=== PATIENT | male | born 1965 | race Caucasian/White ===

== ENCOUNTER 2016-08-01 12:02 | Inpatient (IN) | payer BC, SELFPAY ==
[2016-08-01 12:37] LABS: ABG Draw Site Right Radial; ABG Draw Tech SI; ALLEN'S TEST PASS; BEb -0.8 (+/- 2); TCO2 26.3 MMOL/L (23-27)
--- NOTE | 2016-08-01 12:38 | EDPRACDOC ---
- General Information Chief Complaint: Dyspnea/Resp distress Stated Complaint: RESP Time Seen by Provider: 08/01/16 12:19 Information Source: Patient, Block Breaker Mode Of Arrival: Ambulance Home Medications: Home Medications Fluticasone/Salmeterol [Advair 500-50 Diskus] 1 puff INH BID 08/07/13 Sertraline HCl [Zoloft] 100 mg PO DAILY 11/23/15 Albuterol Sulfate [Proair Hfa] 2 puff INH Q4-6H PRN 02/11/16 Gabapentin 300 mg PO BID 02/11/16 Meloxicam [Mobic] 15 mg PO DAILY 03/14/16 Albuterol Sulfate [Ventolin] 2.5 mg NEB Q6H 04/25/16 Alprazolam [Xanax] 0.5 mg PO TID 04/25/16 Eszopiclone [Lunesta] 3 mg PO QHS PRN 05/25/16 Umeclidinium [place] [Incruse Ellipta] 62.5 mcg INH DAILY 05/25/16 Aspirin (Enteric Coated) [Halfprin] 81 mg PO HS 06/28/16 Oxycodone HCl [Oxycodone Immediate Release] 10 mg PO TID #30 tablet 06/30/16 Allergies/Adverse Reactions: Allergies Allergy/AdvReac Type Severity Reaction Status Date / Time No Known Allergies Allergy Verified 06/28/16 17:59 - History of Present Illness HPI: SOB FOR 3-4 DAYS. H/O COPD, PNA. LAST ADMITTED A FEW MONTHS AGO FOR PNA. NO FEVER. + PRODUCTIVE COUGH. INTERMITTENTLY IMPROVED WITH NEBS. 3 NEBS AT HOME. 3 NEBS EN ROUTE INCLUDING DUONEB. CHEST PAIN WITH COUGHING. + SMOKE.R - Treatment Prior to ED Arrival Reported Medications/Treatment HAT AND CAP SEWER Meds/Treatments Given O2 via Cannula,Neb Treatment(Albuterol) Medications HAT AND CAP SEWER (Medication/ DuoNeb x 3 Dose/Time) EMS Treatment BLS IV Yes ED Past Medical History - Patient Medical History Neurological History: Reports: Cerebrovascular Accident Cardiac History: Reports: Coronary Artery Disease. 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 Denies: Depression, Substance Use Disorder (in remission x 1 year) Surgical History: Reports: Other (Multiple sinus surgeries, portacath for dialysis access) - Family Medical History Reports: Diabetes (mother), Cancer (grandfather.), Stroke (grandmother). Denies : Hypertension, Cardiac Disorders - Social Medical History Smoking Status: Heavy tobacco smoker (5 or more cigarettes/day or daily pipe/ cigar) Social History: Denies: Cocaine Use, Heroin Use, Methadone Use, Substance Use Disorder (in remission x 1 year) EDM Review of Systems - Review of Systems ROS Negative Except as Marked: Yes All systems reviewed and were negative except as marked Constitutional: No Symptoms Reported Eyes: No Symptoms Reported Respiratory: Cough, Shortness of Breath Cardiovascular: Chest Pain Gastrointestinal: No Symptoms Reported Genitourinary: No Symptoms Reported Neurological: Headache Musculoskeletal: No Symptoms Reported - Physical Exam Constitutional: Alert (Awake) Oriented to: Time, Person, Place Last recorded Vital Signs: Last Vital Signs Temp 98.7 F 08/01/16 12:10 Pulse 109 08/01/16 12:30 Resp 26 H 08/01/16 12:30 BP 127/67 08/01/16 12:30 Pulse Ox 91 08/01/16 12:30 Oxygen Pulse Oxygen Saturation 91 O2 Device Nasal Cannula Oxygen Flow Rate 2 Fraction of Inspired Oxygen ( FIO2) - HEENT Head: Normal ( normocephalic) Eye Exam: Normal (PERRL, EOMI, Sclera white) Oropharynx: Normal (Pharynx:Moist without exudate,Gums-no swelling) Nose: No Symptoms Reported (septum midline) Neck: Normal (FROM, trachea at midline) - Respiratory/Cardiovascular Respiratory: Wheezes Cardiovascular: Tachycardia - GI Auscultation: Normal (NABS) Palpation: Normal (Soft,No rebound or guarding, non distended) Tenderness: Non tender Allen's Sign: Negative - Musculoskeletal Back: Normal (Non-Tender) Extremities: Normal (Normal tone, Pulses 2+ No cyanosis or edema, FROM) - Integumentary Skin: Normal, Warm, Dry Lymphatics: Normal (no adenopathy) - Neurologic Memory Impaired: Normal Motor Function: Normal (Normal tone, Pulses 2+ No cyanosis or edema, FROM) Cranial Nerve: Normal (CN II-X11 intact sensation, strength 5/5) Cerebellar: Normal Mood Description: Normal Perception: Normal ED SOB MDM - Re-evaluation Re-evaluation 1 Re-evaluation Time: 13:34 Re-evaluation: RESTING COMFORTABLY - Results Result Diagrams: 08/01/16 12:55 08/01/16 12:55 - EKG EKG #1 EKG Time: 12:10 -: Yes EKG interpreted by me Rate: bpm: 117 [place]: Normal Rhythm: ST, PVCs Block: None Hypertrophy: None ST: Normal Comments: NORMAL EKG - Departure Yes I personally saw and evaluated the patient. Disposition: Admit IP To This Hospital Condition: Stable Final Diagnosis: Acute exacerbation of chronic obstructive airways disease Decision to Admit Time: 13:34 Decision to admit date: 08/01/16 Decision to admit: from ED - Physician Consulted Hospitalist Time Called: 13:34 Provider Called: Carlin Meyer Time Inside Sales Manager Returned Call: 13:34
[2016-08-01] MEDS ORDERED: ACETAMINOPHEN 325 MG/TAB TABLET PO ONE (12:39)
[2016-08-01 13:04] LABS: AUTOMATED BASOPHIL 0.4 % (0-2); AUTOMATED EOSINOPHIL 6.8 % (0-5); AUTOMATED LYMPH 8.7 % (17-44); AUTOMATED MONOCYTE 8.7 % (3-10); AUTOMATED NEUTROPHIL 75.4 % (45-76); MPV 8.1 fL (7.4-10.4)
[2016-08-01 13:15] LABS: PARTIAL THROMB. TIME 32.8 SEC (22-35); PT-INR 1.1
[2016-08-01 13:17] LABS: BLOOD UREA NITROGEN 10 MG/DL (9-20); CALCIUM 8.5 MG/DL (8.4-10.2); CALCULATED OSMOLALITY 270 MOs/Kg (270-290); CHLORIDE 108 mEq/L (98-107); GLUCOSE 98 MG/DL (70-99); SODIUM LEVEL 141 mEq/L (137-146); TOTAL PROTEIN 6.8 G/DL (6.3-8.2)
[2016-08-01] MEDS ORDERED: CEFTRIAXONE 1 GM in D5W 100 ML IV ONE (13:35)
[2016-08-01] MEDS ORDERED: ONDANSETRON HCL 4 MG/2 ML VIAL IV PRN (13:35)
[2016-08-01] MEDS ORDERED: AZITHROMYCIN 500 MG in D5W 250 ML IV ONE (13:35)
[2016-08-01] MEDS ORDERED: ACETAMINOPHEN 325 MG/TAB TABLET PO PRN (13:35)
--- NOTE | 2016-08-01 13:51 | DIRPT ---
CLINICAL DATA: Shortness of breath. Cough. EXAM: PORTABLE CHEST 1 VIEW COMPARISON: Chest radiograph 06/29/2016. FINDINGS: Stable cardiac and mediastinal contours. Heterogeneous opacities right lung base. No pleural effusion or pneumothorax. Regional skeleton is unremarkable. IMPRESSION: Heterogeneous opacities right lung base may represent infection and/or atelectasis. Electronically Signed By: Luiz Porras M.D. On: 08/01/2016 13:48
[2016-08-01] MEDS: METHYLPREDNISOLONE 125 MG/2 ML VIAL IV SCH ×2 (13:53→20:26)
[2016-08-01] MEDS ORDERED: ESZOPICLONE 3 MG PO PRN (14:39)
[2016-08-01 15:02] VITALS: BMI 26.8
--- NOTE | 2016-08-01 15:17 | HISTPHYS ---
- Chief Complaint COPD exacerbation, shortness of breath and cough - History of Present Illness This is a 50-year-old male with a history of severe COPD who is being admitted to the hospital with 3 days of cough shortness of breath. Cough is productive of some thick sputum, but it is not discolored. Has been having some associated lower chest/upper abdominal pain due to significant coughing. No therapies prior to arrival. No fevers, chills, nausea, vomiting or diarrhea. 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 Denies: Depression - Surgical History Reports: Other (Multiple sinus surgeries, portacath for dialysis access) - Medictions/Allergies Allergies No Known Allergies Allergy (Verified 06/28/16 17:59) Home Medications Fluticasone/Salmeterol [Advair 500-50 Diskus] 1 puff INH BID 08/07/13 Sertraline HCl [Zoloft] 100 mg PO DAILY 11/23/15 Albuterol Sulfate [Proair Hfa] 2 puff INH Q4-6H PRN 02/11/16 Gabapentin 300 mg PO BID 02/11/16 Meloxicam [Mobic] 15 mg PO DAILY 03/14/16 Albuterol Sulfate [Ventolin] 2.5 mg NEB Q6H 04/25/16 Alprazolam [Xanax] 0.5 mg PO TID 04/25/16 Eszopiclone [Lunesta] 3 mg PO QHS PRN 05/25/16 Umeclidinium [place] [Incruse Ellipta] 62.5 mcg INH DAILY 05/25/16 Aspirin (Enteric Coated) [Halfprin] 81 mg PO HS 06/28/16 Oxycodone HCl [Oxycodone Immediate Release] 10 mg PO TID #30 tablet 06/30/16 - Family History Reports: Diabetes (mother), Cancer (grandfather.), Stroke (grandmother). Denies : Hypertension, Cardiac Disorders - Social History Travel Outside of [place] in the Last 3 Months?: No Smoking Status: Heavy tobacco smoker (5 or more cigarettes/day or daily pipe/ cigar) - Review of Systems Constitutional: No Symptoms Reported (No fever, chills, wt loss/gain, fatigue) Eyes: No Symptoms Reported (No blurry vision, visual changes) Respiratory: No Symptoms Reported (No cough,wheezing or shortness of breath) Cardiovascular: No Symptoms Reported (No Chest pain, palpitations) Gastrointestinal: No Symptoms Reported (No abdominal pain, nausea, vomiting, diarrhea or constipation) Genitourinary: No Symptoms Reported (No dysuria) Musculoskeletal:: No Symptoms Reported (No headache, dizzness, seizures or focal weakness) Integumentary: No Symptoms Reported (No rashes or lesions) Hematologic: No Symptoms Reported (No bleeding or easy bruising) Endocrine: No Symptoms Reported (No polyuria) - Physical Exam Vital Signs: Initial Vitals Temperature 98.7 F 08/01/16 12:10 Pulse Rate 118 08/01/16 12:10 Respiratory Rate 26 H 08/01/16 12:10 Blood Pressure 160/69 08/01/16 12:10 Pulse Oxygen Saturation 86 L 08/01/16 12:10 Constitutional: Distress Oriented to: Time, Person, Place - HEENT Head: Normal (normocephalic,atraumatic, trachea midline) Eye: Normal (EOMI, Sclera white) Oropharynx: Normal (moist) Nose: No Symptoms Reported (without discharge or bleeding) Respiratory: Accessory Muscle Use, Diminished, Rales, Rhonchi, Wheezes Cardiovascular: Normal (RRR, no murmurs, rubs or gallops) - GI Palpation: Normal (soft, non distended and nontender) - Musculoskeletal Extremities: Normal (normal tone, no cyanosis or edema) - Integumentary Skin: Normal (no rashes or lesions) - Focused CV Perfusion Exam Vital Signs: Last Vital Signs Temp 97.7 F 08/01/16 14:53 Pulse 89 08/01/16 14:53 Resp 22 08/01/16 14:53 BP 107/67 08/01/16 14:53 Pulse Ox 91 08/01/16 14:53 - Lab Results Laboratory Tests 08/01/16 08/01/16 08/01/16 12:24 12:55 12:55 WBC 9.0 Hgb 12.4 L INR pH 7.360 pCO2 44.0 pO2 60.0 L Potassium 3.6 BUN 10 Creatinine 0.90 08/01/16 12:55 WBC Hgb INR 1.1 pH pCO2 pO2 Potassium BUN Creatinine - Diagnostic Findings Chest x-ray: Heterogeneous opacities right lung base may represent infection and/or atelectasis. - Assessment (1) Acute exacerbation of chronic obstructive airways disease J44.1 - CHRONIC OBSTRUCTIVE PULMONARY DISEASE W (ACUTE) EXACERBATION Acute Patient was just admitted to the hospital about 1 month ago with community- acquired pneumonia, as well as COPD exacerbation. Unfortunately his back in the hospital with the same diagnosis. Will admit to the hospital to the PCU. Treat COPD exacerbation with scheduled duo nebs, p.r.n. albuterol as well as good aggressive pulmonary toilet with respiratory therapy. IV steroid dose and taper. Also empiric IV azithromycin and Rocephin. (2) Bilateral pneumonia J18.9 - PNEUMONIA, UNSPECIFIED ORGANISM Acute Sputum culture has been obtained and will be followed up on. Sputum culture on previous admission grew strep that was resistant to macrolides. As such, will treat with Unasyn and Levaquin. (3) HTN (hypertension) I10 - ESSENTIAL (PRIMARY) HYPERTENSION Acute Qualifiers: Patient's history of hypertension, not taking medication at home for this. Will continue to follow blood pressure here, and start medication if appropriate. (4) CAD (coronary artery disease) I25.10 - ATHSCL HEART DISEASE OF [place] CORONARY ARTERY W/O ANG PCTRS Chronic Qualifiers: Continue home medications and monitor. (5) Depression F32.9 - MAJOR DEPRESSIVE DISORDER, SINGLE EPISODE, UNSPECIFIED Chronic Qualifiers: Continue zoloft Case Care Discussed with: Patient, Nursing Staff Total Time: 41
[2016-08-01] MEDS: Albuterol/Ipratropium Neb 3 ML NEB NEB SCH ×2 (15:26→20:15)
[2016-08-01] MEDS ORDERED: ALPRAZOLAM 0.5 MG TAB PO ONE (15:45)
[2016-08-01] MEDS ORDERED: OXYCODONE HCL 5 MG TABLET PO ONE (15:45)
[2016-08-01] MEDS ORDERED: Vaccine Screening Complete SCH (16:00)
[2016-08-01] MEDS: AMPICILLIN-SULBACTAM 3 GM in NS 100 ML IV SCH ×2 (16:36→22:33)
[2016-08-01] MEDS: Levofloxacin 750 mg/150 ml D5W 750 MG/150 ML RTU IV SCH (17:25)
[2016-08-01] MEDS: ENOXAPARIN 40 MG/0.4 ML PFS SQ SCH (17:26)
[2016-08-01] MEDS: IPRATROPIUM 0.02% 2.5 ML NEB NEB SCH (20:16)
[2016-08-01] MEDS: ALPRAZOLAM 0.5 MG TAB PO SCH (20:26)
[2016-08-01] MEDS: OXYCODONE HCL 5 MG TABLET PO SCH (20:26)
[2016-08-01] MEDS: GABAPENTIN 300 MG CAP PO SCH (20:27)
[2016-08-01] MEDS ORDERED: Non-Formulary Medication ITEM (Oxycodone Hcl [Oxycodone Immediate Release] 10 MG) PO SCH (21:00)
[2016-08-01] MEDS: ZOLPIDEM TARTRATE 5 MG TAB PO PRN (22:33)
[2016-08-02] MEDS: Albuterol/Ipratropium Neb 3 ML NEB NEB SCH ×4 (01:16→20:45)
[2016-08-02] MEDS: IPRATROPIUM 0.02% 2.5 ML NEB NEB SCH ×2 (01:19→09:05)
[2016-08-02] MEDS: METHYLPREDNISOLONE 125 MG/2 ML VIAL IV SCH ×4 (02:50→19:46)
[2016-08-02] MEDS: AMPICILLIN-SULBACTAM 3 GM in NS 100 ML IV SCH ×4 (03:18→22:51)
[2016-08-02 04:44] LABS: MPV 8.5 fL (7.4-10.4)
[2016-08-02 04:56] LABS: BLOOD UREA NITROGEN 15 MG/DL (9-20); CALCIUM 8.9 MG/DL (8.4-10.2); CALCULATED OSMOLALITY 275 MOs/Kg (270-290); CHLORIDE 105 mEq/L (98-107); GLUCOSE 188 MG/DL (70-99); SODIUM LEVEL 140 mEq/L (137-146)
[2016-08-02] MEDS: ALPRAZOLAM 0.5 MG TAB PO SCH ×3 (06:01→21:03)
[2016-08-02] MEDS: OXYCODONE HCL 5 MG TABLET PO SCH ×3 (06:01→21:03)
[2016-08-02] MEDS: GABAPENTIN 300 MG CAP PO SCH ×2 (08:29→21:02)
[2016-08-02] MEDS: SERTRALINE HCL 100 MG TAB PO SCH (08:29)
--- NOTE | 2016-08-02 08:50 | GENMEDPROG ---
Chief Complaint: COPD exacerbation Subjective Note: Resting comfortably in bed this morning. He has ambulated to the bathroom, and feeling very winded and short of breath when he does that. Still feels like he is wheezing. Has been coughing overnight, but not productive of anything. Notes Reviewed: Yes Events from last night noted and discussed with Clinical Staff Current Medication List: Reviewed Currently: Reports: Cough, Wheezing, BALL, SOB. Denies: Sputum DVT Prophylaxis: Yes - Physical Examination Vital Signs and I&O: Last Vital Signs Temp 97.7 F 08/02/16 07:49 Pulse 79 08/02/16 08:39 Resp 18 08/02/16 07:49 BP 110/58 L 08/02/16 07:49 Pulse Ox 96 08/02/16 08:42 Oxygen Pulse Oxygen Saturation 96 O2 Device Nasal Cannula Oxygen Flow Rate 2 Fraction of Inspired Oxygen ( FIO2) Intake & Output 07/31/16 08/01/16 08/02/16 08/03/16 06:59 06:59 06:59 06:59 Intake Total 920 Output Total 1100 Balance -180 Patient's weight 81.284 kg General: Alert, Oriented x3, Cooperative, Mild distress Neck: Normal Trachea alignment, Normal inspection Respiratory: Diminished, Rales, Rhonchi, Wheezes Cardiovascular: Regular rate, No Gallops,Rubs/Murmurs GI: Normal bowel sounds, Soft, Non tender (non distended) Extremities/Musculoskeletal: Other (Normal Tone). negative: Edema, Cyanosis Lab/DI/Studies Reviewed: Laboratory Tests 08/02/16 08/02/16 04:35 04:35 WBC 8.8 Hgb 12.0 L Potassium 3.8 BUN 15 Creatinine 0.80 - Assessment (1) Acute exacerbation of chronic obstructive airways disease Acute J44.1 - CHRONIC OBSTRUCTIVE PULMONARY DISEASE W (ACUTE) EXACERBATION Comment/Plan: Patient was just admitted to the hospital about 1 month ago with community-acquired pneumonia, as well as COPD exacerbation. Unfortunately his back in the hospital with the same diagnosis. Will admit to the hospital to the PCU. Treat COPD exacerbation with scheduled duo nebs, p.r.n. albuterol as well as good aggressive pulmonary toilet with respiratory therapy. IV steroid dose and taper. Also empiric IV azithromycin and Rocephin. Only marginally improved today. Continue present care as mentioned above. (2) Bilateral pneumonia Acute J18.9 - PNEUMONIA, UNSPECIFIED ORGANISM Comment/Plan: Sputum culture has been obtained and will be followed up on. Sputum culture on previous admission grew strep that was resistant to macrolides. As such, will treat with Unasyn and Levaquin. (3) HTN (hypertension) Acute I10 - ESSENTIAL (PRIMARY) HYPERTENSION Qualifiers: Comment/Plan: Patient's history of hypertension, not taking medication at home for this. Will continue to follow blood pressure here, and start medication if appropriate. (4) CAD (coronary artery disease) Chronic I25.10 - ATHSCL HEART DISEASE OF [place] CORONARY ARTERY W/O ANG PCTRS Qualifiers: Comment/Plan: Continue home medications and monitor. (5) Depression Chronic F32.9 - MAJOR DEPRESSIVE DISORDER, SINGLE EPISODE, UNSPECIFIED Qualifiers: Comment/Plan: Continue zoloft Case Care Discussed with: Patient, Family, Nursing Staff Total Time: 29
[2016-08-02] MEDS ORDERED: UMECLIDINIUM BROMIDE 62.5 MCG INH SCH (09:00)
[2016-08-02] MEDS: IBUPROFEN 600 MG TAB PO PRN (09:38)
[2016-08-02] MEDS: ALBUTEROL 0.083% 3 ML NEB NEB PRN (10:44)
[2016-08-02] MEDS ORDERED: CEFTRIAXONE 1 GM in D5W 100 ML IV SCH (12:00)
[2016-08-02] MEDS ORDERED: AZITHROMYCIN 500 MG in D5W 250 ML IV SCH (14:00)
[2016-08-02] MEDS: Levofloxacin 750 mg/150 ml D5W 750 MG/150 ML RTU IV SCH (17:17)
[2016-08-02] MEDS ORDERED: CHAPSTICK LIP BALM ONE (17:21)
[2016-08-02] MEDS: ENOXAPARIN 40 MG/0.4 ML PFS SQ SCH (17:23)
[2016-08-02] MEDS: ZOLPIDEM TARTRATE 5 MG TAB PO PRN (21:03)
[2016-08-03] MEDS: Albuterol/Ipratropium Neb 3 ML NEB NEB SCH ×4 (01:50→21:41)
[2016-08-03] MEDS: METHYLPREDNISOLONE 125 MG/2 ML VIAL IV SCH ×4 (02:10→20:09)
[2016-08-03] MEDS: AMPICILLIN-SULBACTAM 3 GM in NS 100 ML IV SCH ×4 (05:03→21:32)
[2016-08-03] MEDS: OXYCODONE HCL 5 MG TABLET PO SCH ×4 (05:03→20:09)
[2016-08-03] MEDS: ALPRAZOLAM 0.5 MG TAB PO SCH ×3 (05:03→20:09)
[2016-08-03 07:13] LABS: MPV 8.7 fL (7.4-10.4)
[2016-08-03 07:42] LABS: BLOOD UREA NITROGEN 17 MG/DL (9-20); CALCIUM 9.3 MG/DL (8.4-10.2); CALCULATED OSMOLALITY 277 MOs/Kg (270-290); CHLORIDE 107 mEq/L (98-107); GLUCOSE 129 MG/DL (70-99); SODIUM LEVEL 142 mEq/L (137-146)
[2016-08-03] MEDS: SERTRALINE HCL 100 MG TAB PO SCH (08:31)
[2016-08-03] MEDS: GABAPENTIN 300 MG CAP PO SCH ×2 (08:32→20:10)
--- NOTE | 2016-08-03 13:19 | GENMEDPROG ---
Chief Complaint: COPD exacerbation Subjective Note: No acute events overnight. No specific complaints, feels that he is breathing better in general, but breathing still feels tight, he gets very dyspneic with any exertion. Notes Reviewed: Yes Events from last night noted and discussed with Clinical Staff Current Medication List: Reviewed Currently: Reports: Cough, Wheezing, BALL, SOB. Denies: Sputum DVT Prophylaxis: Yes - Physical Examination Vital Signs and I&O: Last Vital Signs Temp 97.8 F 08/03/16 06:00 Pulse 82 08/03/16 06:00 Resp 19 08/03/16 06:00 BP 94/64 L 08/03/16 06:00 Pulse Ox 96 08/03/16 08:00 Oxygen Pulse Oxygen Saturation 96 O2 Device Nasal Cannula Oxygen Flow Rate 2 Fraction of Inspired Oxygen ( FIO2) Intake & Output 08/01/16 08/02/16 08/03/16 08/04/16 06:59 06:59 06:59 06:59 Intake Total 920 1167 120 Output Total 1100 1050 325 Balance -180 117 -205 Patient's weight 81.284 kg 82.781 kg General: Alert, Oriented x3, Cooperative, Mild distress Neck: Normal Trachea alignment, Normal inspection Respiratory: Diminished, Rales, Rhonchi, Wheezes, Other (Still very little air movement, only marginally improved.) Cardiovascular: Regular rate, No Gallops,Rubs/Murmurs GI: Normal bowel sounds, Soft, Non tender (non distended) Extremities/Musculoskeletal: Other (Normal Tone). negative: Edema, Cyanosis Lab/DI/Studies Reviewed: Laboratory Tests 08/03/16 08/03/16 06:32 06:32 WBC 23.2 H Hgb 11.8 L Potassium 4.5 BUN 17 Creatinine 0.80 - Assessment (1) Acute exacerbation of chronic obstructive airways disease Acute J44.1 - CHRONIC OBSTRUCTIVE PULMONARY DISEASE W (ACUTE) EXACERBATION Comment/Plan: Patient was just admitted to the hospital about 1 month ago with community-acquired pneumonia, as well as COPD exacerbation. Unfortunately his back in the hospital with the same diagnosis. Will admit to the hospital to the PCU. Treat COPD exacerbation with scheduled duo nebs, p.r.n. albuterol as well as good aggressive pulmonary toilet with respiratory therapy. IV steroid dose and taper. Also empiric IV azithromycin and Rocephin. Only marginally improved today. Continue present care as mentioned above. (2) Bilateral pneumonia Acute J18.9 - PNEUMONIA, UNSPECIFIED ORGANISM Comment/Plan: Sputum culture has been obtained and will be followed up on. Sputum culture on previous admission grew strep that was resistant to macrolides. As such, will treat with Unasyn and Levaquin. (3) HTN (hypertension) Acute I10 - ESSENTIAL (PRIMARY) HYPERTENSION Qualifiers: Comment/Plan: Patient's history of hypertension, not taking medication at home for this. Will continue to follow blood pressure here, and start medication if appropriate. (4) CAD (coronary artery disease) Chronic I25.10 - ATHSCL HEART DISEASE OF [place] CORONARY ARTERY W/O ANG PCTRS Qualifiers: Comment/Plan: Continue home medications and monitor. (5) Depression Chronic F32.9 - MAJOR DEPRESSIVE DISORDER, SINGLE EPISODE, UNSPECIFIED Qualifiers: Comment/Plan: Continue zoloft - Plan Marginal improvement, continue present care. Hopefully will be starting to improve more in the next 1-2 days and can be discharged home. My hope is to discharge him off of supplemental oxygen.
[2016-08-03] MEDS: IBUPROFEN 600 MG TAB PO PRN (15:18)
[2016-08-03] MEDS: Levofloxacin 750 mg/150 ml D5W 750 MG/150 ML RTU IV SCH (17:04)
[2016-08-03] MEDS: ENOXAPARIN 40 MG/0.4 ML PFS SQ SCH (17:04)
[2016-08-03] MEDS: ZOLPIDEM TARTRATE 5 MG TAB PO PRN (20:25)
[2016-08-04] MEDS: Albuterol/Ipratropium Neb 3 ML NEB NEB SCH ×4 (01:00→19:30)
[2016-08-04] MEDS ORDERED: NS 500 ML IV ONE (02:20)
[2016-08-04] MEDS: METHYLPREDNISOLONE 125 MG/2 ML VIAL IV SCH ×4 (02:22→20:17)
[2016-08-04] MEDS: AMPICILLIN-SULBACTAM 3 GM in NS 100 ML IV SCH ×4 (04:58→22:07)
[2016-08-04] MEDS: ALPRAZOLAM 0.5 MG TAB PO SCH ×3 (05:01→20:20)
[2016-08-04] MEDS: OXYCODONE HCL 5 MG TABLET PO SCH ×3 (05:01→20:19)
[2016-08-04 07:46] LABS: MPV 8.4 fL (7.4-10.4)
[2016-08-04 08:25] LABS: BLOOD UREA NITROGEN 17 MG/DL (9-20); CALCIUM 8.8 MG/DL (8.4-10.2); CALCULATED OSMOLALITY 279 MOs/Kg (270-290); CHLORIDE 106 mEq/L (98-107); GLUCOSE 126 MG/DL (70-99); SODIUM LEVEL 143 mEq/L (137-146)
[2016-08-04] MEDS: SERTRALINE HCL 100 MG TAB PO SCH (08:57)
[2016-08-04] MEDS: GABAPENTIN 300 MG CAP PO SCH ×2 (08:57→20:19)
--- NOTE | 2016-08-04 12:37 | PCM.DCS92 ---
- Final/Secondary Discharge Diagnosis (1) Acute exacerbation of chronic obstructive airways disease Acute J44.1 - CHRONIC OBSTRUCTIVE PULMONARY DISEASE W (ACUTE) EXACERBATION Comment: Patient was just admitted to the hospital about 1 month ago with community-acquired pneumonia, as well as COPD exacerbation. Unfortunately his back in the hospital with the same diagnosis. Was admitted to the PCU to treat his COPD exacerbation. Treated with scheduled duo nebs, p.r.n. albuterol as well as aggressive pulmonary toilet with respiratory therapy. He was also treated empirically with IV Zithromax and Rocephin. He has done very well, feeling much better today. He is now been weaned off of oxygen completely onto room air. He expressed some concern about being discharged home today, as he feels like he is getting winded when he ambulates. However, myself and nursing staff feel that he is doing quite well, he is not desaturating at all with movement, and his pulmonary status is much improved. (2) Bilateral pneumonia Acute J18.9 - PNEUMONIA, UNSPECIFIED ORGANISM Comment: Sputum culture has been obtained and will be followed up on. Sputum culture on previous admission grew strep that was resistant to macrolides. As such, will treat with Unasyn and Levaquin. (3) HTN (hypertension) Acute I10 - ESSENTIAL (PRIMARY) HYPERTENSION Comment: Patient's history of hypertension, not taking medication at home for this. Will continue to follow blood pressure here, and start medication if appropriate. (4) CAD (coronary artery disease) Chronic I25.10 - ATHSCL HEART DISEASE OF [place] CORONARY ARTERY W/O ANG PCTRS Comment: Continue home medications and monitor. (5) Depression Chronic F32.9 - MAJOR DEPRESSIVE DISORDER, SINGLE EPISODE, UNSPECIFIED Comment: Continue zoloft Discharge Condition: Stable Physician Follow up/Referrals: Paul Knox MD [Primary Care Provider] - One Week New Prescriptions: Azithromycin [Zithromax] 500 mg PO DAILY #4 tablet Cefdinir [Omnicef] 300 mg PO BID 4 Days Prednisone [Deltasone] 20 mg PO DAILY #4 tablet O2 Device: Room Air Diet at Discharge: Regular - DC Summary Notes HPI/Notes: This is a 50-year-old male with a history of COPD was recently treated in this hospital for community-acquired pneumonia, was readmitted to the hospital with respiratory distress found to be in COPD exacerbation. He was treated in the usual fashion as mentioned above, ready for discharge home today on room air. Please see the hospital problems and discharge problems above for details of the hospital course including diagnostics and treatment. The plan of care including medications, prognosis, follow-up including alarm symptoms for which medical care should be sought were reviewed with the patient and any available family members/caretakers. The patient is agreeable to discharge today, and all questions were answered by me to their satisfaction. Hospital Course Note:: Discharge summary on patient named SAMM ZACARIAS admitted to [facility] on 08/01/16 by Carlin Meyer MD. Date of discharge is []. Total Time: 48 - Physical Exam Vital Signs: Last Vital Signs Temp 97.9 F 08/04/16 04:40 Pulse 69 08/04/16 04:40 Resp 18 08/04/16 04:40 BP 129/62 08/04/16 04:40 Pulse Ox 96 08/04/16 11:15 Oxygen Pulse Oxygen Saturation 96 O2 Device Room Air Oxygen Flow Rate 2 Fraction of Inspired Oxygen ( FIO2) Constitutional: No apparent distress, Alert Oriented to: Time, Person, Place Exam: Breathing comfortably on room air this morning. Able to speak full sentences move about in his room without any hypoxia or significant shortness of breath. - HEENT Head: Normal (normocephalic,atraumatic, trachea midline) Eye: Normal (EOMI, Sclera white) Oropharynx: Normal (moist) Nose: No Symptoms Reported (without discharge or bleeding) - Respiratory/Cardiovascular Respiratory: Diminished, Wheezes Cardiovascular: Normal (RRR , Normal S1, S2. No murmurs, rubs, or gallops. PMI non-displaced. Carotids: no carotid bruits. No bradycardia or tachycardia. DP pulses 2+ bilaterally.) - GI Palpation: Normal (soft, non distended and nontender) - Musculoskeletal Extremities: Normal (normal tone, no cyanosis or edema) - Integumentary Skin: Normal (no rashes or lesions) - Neurologic Memory Impaired: Normal Cerebellar: Normal Mood Description: Normal Perception: Normal
[2016-08-04] MEDS: ENOXAPARIN 40 MG/0.4 ML PFS SQ SCH (17:21)
[2016-08-04] MEDS: Levofloxacin 750 mg/150 ml D5W 750 MG/150 ML RTU IV SCH (17:21)
[2016-08-04] MEDS: ZOLPIDEM TARTRATE 5 MG TAB PO PRN (20:22)
[2016-08-04 21:57] VITALS: TEMP 97.9
[2016-08-04] MEDS: ALBUTEROL 0.083% 3 ML NEB NEB PRN (22:15)
[2016-08-05] MEDS: Albuterol/Ipratropium Neb 3 ML NEB NEB SCH ×3 (01:45→13:41)
[2016-08-05] MEDS: METHYLPREDNISOLONE 125 MG/2 ML VIAL IV SCH ×3 (02:57→13:10)
[2016-08-05] MEDS: AMPICILLIN-SULBACTAM 3 GM in NS 100 ML IV SCH ×2 (02:59→08:29)
[2016-08-05] MEDS: ALPRAZOLAM 0.5 MG TAB PO SCH ×2 (05:37→13:10)
[2016-08-05] MEDS: OXYCODONE HCL 5 MG TABLET PO SCH ×2 (05:37→13:10)
[2016-08-05 05:46] VITALS: BP 149/76; PULSE 70
[2016-08-05 05:53] LABS: MPV 8.6 fL (7.4-10.4)
[2016-08-05 06:18] LABS: BLOOD UREA NITROGEN 20 MG/DL (9-20); CALCIUM 9.2 MG/DL (8.4-10.2); CALCULATED OSMOLALITY 276 MOs/Kg (270-290); CHLORIDE 99 mEq/L (98-107); GLUCOSE 127 MG/DL (70-99); SODIUM LEVEL 141 mEq/L (137-146)
[2016-08-05] MEDS: GABAPENTIN 300 MG CAP PO SCH (08:25)
[2016-08-05] MEDS: SERTRALINE HCL 100 MG TAB PO SCH (08:25)
--- NOTE | 2016-08-05 09:57 | PCM.DCS92 ---
- Final/Secondary Discharge Diagnosis (1) Bilateral pneumonia Acute J18.9 - PNEUMONIA, UNSPECIFIED ORGANISM Present on Admission: Yes due to unspecified organism lower lobe of lung J18.9 - Pneumonia, unspecified organism Comment: A single CXR was obtained which revealed a RLL infiltrate. No cultures are available for review from this admission or ED visit. He has improved clinically with 5 days of IV Unasyn and Levaquin. (2) Acute exacerbation of chronic obstructive airways disease Acute J44.1 - CHRONIC OBSTRUCTIVE PULMONARY DISEASE W (ACUTE) EXACERBATION Present on Admission: Yes Comment: Patient was just admitted to the hospital about 1 month ago with community-acquired pneumonia, as well as COPD exacerbation. Unfortunately his back in the hospital with the same diagnosis. Was admitted to the PCU to treat his COPD exacerbation. Treated with scheduled duo nebs, p.r.n. albuterol as well as aggressive pulmonary toilet with respiratory therapy. He was also treated empirically with IV Unasyn and Levaquin. He has done very well, feeling much better today. He is now been weaned off of oxygen completely onto room air. He expressed some concern about being discharged home today, as he feels like he is getting winded when he ambulates. However, he is not desaturating at all with movement, and his pulmonary status is much improved. (3) COPD exacerbation Acute J44.1 - CHRONIC OBSTRUCTIVE PULMONARY DISEASE W (ACUTE) EXACERBATION Present on Admission: Yes Comment: Continue nebulized bronchodilators po steroids and mucolytics (4) HTN (hypertension) Acute I10 - ESSENTIAL (PRIMARY) HYPERTENSION Present on Admission: Yes other secondary hypertension I15.8 - Other secondary hypertension Comment: Patient's history of hypertension, not taking medication at home for this. Will continue to follow blood pressure here, and start medication if appropriate. (5) CAD (coronary artery disease) Chronic I25.10 - ATHSCL HEART DISEASE OF [place] CORONARY ARTERY W/O ANG PCTRS Present on Admission: Yes Comment: Continue home medications and monitor. (6) Depression Chronic F32.9 - MAJOR DEPRESSIVE DISORDER, SINGLE EPISODE, UNSPECIFIED Present on Admission: Yes major depressive disorder recurrent in remission of unspecified degree F33.40 - Major depressive disorder, recurrent, in remission, unspecified Comment: Continue zoloft Discharge Disposition: Home Discharge Condition: Stable Cognitive Discharge Status: Unimpaired Fuctional Discharge Status: Independent, Deconditioning, Dyspnea with ambulation Physician Follow up/Referrals: Paul Knox MD [Primary Care Provider] - 08/12/16 10:00 am Chris Hillman MD [Staff Physician] - 1-2 Days New Prescriptions: Cefdinir [Omnicef] 300 mg PO BID 4 Days Prednisone [Deltasone] 20 mg PO DAILY #4 tablet Discharge Home Medication List Fluticasone/Salmeterol [Advair 500-50 Diskus] 1 puff INH BID 08/07/13 [History Confirmed 08/01/16 Last Taken 07/31/16] Sertraline HCl [Zoloft] 150 mg PO DAILY 11/23/15 [History Confirmed 08/01/16 Last Taken 07/31/16] Albuterol Sulfate [Proair Hfa] 2 puff INH Q4-6H PRN 02/11/16 [History Confirmed 08/01/16 Last Taken 05/25/16] Gabapentin 300 mg PO BID 02/11/16 [History Confirmed 08/01/16 Last Taken ] Meloxicam [Mobic] 15 mg PO DAILY 03/14/16 [History Confirmed 08/01/16 Last Taken 07/31/16] Albuterol Sulfate [Ventolin] 2.5 mg NEB Q6H 04/25/16 [History Confirmed Last Taken 07/31/16] Alprazolam [Xanax] 0.5 mg PO TID 04/25/16 [History Confirmed 08/01/16 Last Taken 07/31/16] Umeclidinium [place] [Incruse Ellipta] 62.5 mcg INH DAILY 05/25/16 [History Confirmed 08/01/16 Last Taken 06/28/16] Aspirin (Enteric Coated) [Halfprin] 81 mg PO HS 06/28/16 [History Confirmed 03/10 Last Taken 07/31/16] Oxycodone HCl [Oxycodone Immediate Release] 10 mg PO TID #30 tablet 06/30/16 [ Rx Confirmed 08/01/16 Last Taken 07/31/16] Eszopiclone [Lunesta] 2 mg PO QHS PRN 08/02/16 [History Confirmed 08/02/16 Last Taken Unknown] Cefdinir [Omnicef] 300 mg PO BID 4 Days 08/03/16 [Rx Last Taken Unknown] Prednisone [Deltasone] 20 mg PO DAILY #4 tablet 08/03/16 [Rx Last Taken Unknown] O2 Device: Room Air Diet at Discharge: Regular, Heart Healthy Activity: As Tolerated Call Office For: Worsening Symptoms, Fever over 101 F Discontinue use of:: Alcohol, All Types of Tobacco - DC Summary Notes Hospital Course Note:: Discharge summary on patient named SAMM ZACARIAS admitted to [facility] on 08/01/16 by Carlin Meyer MD. Date of discharge is [08/05/16]. This is a 50-year-old male with a history of severe COPD who is being admitted to the hospital with 3 days of cough shortness of breath. Cough is productive of some thick sputum, but it is not discolored. Has been having some associated lower chest/upper abdominal pain due to significant coughing. No therapies prior to arrival. No fevers, chills, nausea, vomiting or diarrhea. Patient was just admitted to the hospital about 1 month ago with community- acquired pneumonia, as well as COPD exacerbation. Unfortunately his back in the hospital with the same diagnosis. His CXR showed a RLL pneumonia. No culsture specimens were obtained. The patient was admitted to the PCU to treat his COPD exacerbation and pneumonia. He was treated with scheduled duo nebs, p.r.n. albuterol, as well as aggressive pulmonary toilet with respiratory therapy. He was also treated empirically with IV Unasyn and Levaquin. He has done very well, and is feeling much better today. He has now been weaned off of oxygen completely onto room air. He expressed some concern about being discharged home today, as he feels like he is getting winded when he ambulates. However, he is not desaturating at all with movement, and his pulmonary status is much improved. He will be seen by his forest fire fighter, Dr. Hillman, prior to discharge and follow-up with him after discharge. Total Time: 35 min Code: 20045 (>30min.) - Physical Exam Vital Signs: Last Vital Signs Temp 97.9 F 08/05/16 05:46 Pulse 70 08/05/16 05:46 Resp 18 08/05/16 05:46 BP 149/76 08/05/16 05:46 Pulse Ox 97 08/05/16 07:59 Oxygen Pulse Oxygen Saturation 97 O2 Device Nasal Cannula Oxygen Flow Rate 1 Fraction of Inspired Oxygen ( FIO2) Constitutional: No apparent distress, Alert Oriented to: Time, Person, Place - HEENT Head: Normal (normocephalic,atraumatic, trachea midline) Eye: Normal (EOMI, Sclera white) Oropharynx: Normal (moist) Nose: No Symptoms Reported (without discharge or bleeding) - Respiratory/Cardiovascular Respiratory: Diminished, Wheezes Cardiovascular: Normal (RRR , Normal S1, S2. No murmurs, rubs, or gallops. PMI non-displaced. Carotids: no carotid bruits. No bradycardia or tachycardia. DP pulses 2+ bilaterally.) - GI Palpation: Normal (soft, non distended and nontender) - Musculoskeletal Extremities: Normal (normal tone, no cyanosis or edema) - Integumentary Skin: Normal (no rashes or lesions) - Neurologic Memory Impaired: Normal Cerebellar: Normal Mood Description: Normal Perception: Normal
[2016-08-05] MEDS: IBUPROFEN 600 MG TAB PO PRN (11:53)
== END 2016-08-05 14:10 | disposition home or self-care (01) | DRG 190 ==
LOC: ED 12:02 → PCU 13:36 → MPS3 08-02 21:16
PROVIDERS: ADMIT Internal Medicine; ATTEND Family Medicine
PROC: 039B3ZZ Drainage of Right Radial Artery, Percutaneous Approach (ICD-10-PCS; principal; 2016-08-01)
DX: J44.1 Chronic obstructive pulmonary disease with (acute) exacerbation (principal); J18.9 Pneumonia, unspecified organism; I15.8 Other secondary hypertension; I10 Essential (primary) hypertension; F33.40 Major depressive disorder, recurrent, in remission, unspecified; J44.0 Chronic obstructive pulmonary disease with (acute) lower respiratory infection; I25.10 Atherosclerotic heart disease of native coronary artery without angina pectoris; Z87.01 Personal history of pneumonia (recurrent); J45.909 Unspecified asthma, uncomplicated; M19.90 Unspecified osteoarthritis, unspecified site; Z86.73 Personal history of transient ischemic attack (TIA), and cerebral infarction without residual deficits; F41.9 Anxiety disorder, unspecified; Z79.899 Other long term (current) drug therapy; Z79.82 Long term (current) use of aspirin; F17.210 Nicotine dependence, cigarettes, uncomplicated
CPT/HCPCS: 36415; 36600; 71010; 80048; 80053; 82803; 84484; 85025; 85027; 85610; 85730; 93005; 94640; 96365; 96372; 96375; 98960; 99284; 99406; G0237; J0295; J0456; J0696; J1650; J1956; J2930; J3490; J7030; J7060; J7070; J7620